=== PATIENT | female | born 1955 | race Caucasian/White ===

== ENCOUNTER 2021-01-17 16:50 | IRF | payer OTHER, SELFPAY ==
--- NOTE | 2021-01-17 17:06 | ADMGEN ---
This patient, Miriam Sandhu, was admitted to [facility] Room 225-01. Patient/family oriented to hospital policies and general routines including ID bracelet, bed and alarms, visiting hours, pain management, procedures, bathroom and other care routines, personal items, smoking policy, room service/diet, and visiting hours. Information on how to activate the Rapid Response Team has been discussed. Patient/Family are encouraged to report perceived risks to care and to ask questions if they do not understand what they are told or what they should do. arrived via ambulance,, no reported problems during transport
[2021-01-17 17:23] LABS: Glucose Point of Care 81 (65-105)
--- NOTE | 2021-01-17 17:37 | WPDREHABHP ---
H&P: HPI History of Present Illness Date/Time: 01/17/21 17:37 Chief Complaint: right below-knee amputation Narrative: HISTORY OF PRESENT ILLNESS: The patient's primary rehab impairment category is Amputation lower extremity The etiologic diagnosis is right foot osteomyelitis I saw this patient [id number] on 01/17/2021 The patient is a 65-year-old female past medical history of anemia history of pulmonary embolism, asthma, congestive heart failure, chronic kidney disease, diabetes mellitus, gastroparesis, GERD, hyperlipidemia, hypertension, peripheral neuropathy and osteomyelitis of the right foot who presented to [facility] in [facility] on 01/12/2021 for right below-knee amputation by Dr. Ramos. Postoperatively the patient experienced acute postop pain, acute blood loss anemia requiring 1 unit packed red blood cells, hypo glycemia, hypertension, acute kidney injury in the setting of chronic kidney disease. Her pain is controlled with oral analgesics. Acute kidney injury is resolving and creatinine is reaching her baseline. Patient's anemia is stable. Hyperglycemia was in the setting of insulin administration is being monitored and managed accordingly with 8 units of Lantus and sliding scale insulin. Hypertension is being treated with home metoprolol and amlodipine. Patient will be discharged to rehab on Coumadin for DVT prophylaxis. Patient has been on Coumadin and alternates between 1 and 2 mg at home. INR goal is 2-3. Therapy was initiated at the acute care facility and the patient transferred to us from [facility] on 01/17/2021 FALLS OR SURGERIES: The patient has had major surgeries in the 100 days prior to admission. right below the knee amputation 01/12/2021. The patient has not had falls in the past 6 months. The patient has not had falls with injury in the past 6 months PRIOR LEVEL OF FUNCTION: Eating was [INDEPENDENT] Oral Care was [INDEPENDENT] Toileting Hygiene was [INDEPENDENT] Shower/Bathing was [INDEPENDENT] Upper Body Dressing was [INDEPENDENT] Lower Body Dressing was [INDEPENDENT] Donning/[place] Footwear was [INDEPENDENT] Rolling Left and Right was [INDEPENDENT] Sit to Lying was [INDEPENDENT] Lying to Sitting was [INDEPENDENT] Sit to Stand was [INDEPENDENT] Bed to Chair Transfers was [INDEPENDENT] Toilet Transfers was [INDEPENDENT] Walking was [INDEPENDENT] [>500 feet] with roller walker Wheelchair Mobility was [ independent Stairs were [INDEPENDENT] CURRENT LEVEL OF FUNCTION: Eating was independent Oral Care was independent Toileting Hygiene was partial to mod Shower/Bathing was partial to moderate assist Upper Body Dressing was supervision are touching assistance Lower Body Dressing was partial to moderate assistance Donning/[place] Footwear was partial to moderate assistance Rolling Left and Right was supervision or touching assistance Sit to Lying was supervision or touching a Lying to Sitting was ssistance supervision or touching assistance Sit to Stand was partial to moderate assistance Bed to Chair Transfers were partial to moderate as Toilet Transfers were sistance partial to moderate assistance Walking was unable Wheelchair Mobility was not tested Stairs were not GOALS: Our therapists will evaluate the patient and establish the goals. However, upon pre-admission screening, the expected goals were to be [INDEPENDENT] with self-care, [INDEPENDENT] with transfers, and [INDEPENDENT] with functional mobility so that the patient can return home. ESTIMATED LENGTH OF STAY: 7-10 days POTENTIAL BARRIERS TO DISCHARGE: [Patient lives alone.] [Family needs training.] [Severity of condition.] ACTIVE CO-MORBIDITIES PRESENT ON ADMISSION: Active co-morbidities include hypertension, diabetes, peripheral neuropathy, heart failure with preserved ejection fraction, chronic kidney disease, hypoglycemia, allergic rhinitis, anemia
[2021-01-17 18:20] VITALS: BMI 26.1
[2021-01-17] MEDS: HYDROcodone/acetaminophen (*CRX) 5-325 MG TABLET 1 TAB PO (19:46)
[2021-01-17 20:21] VITALS: PULSE 86; RESP 18
[2021-01-17 20:33] LABS: Glucose Point of Care 113 (65-105)
[2021-01-17] MEDS: amLODIPine BESYLATE 5 MG TABLET PO (21:11)
[2021-01-17] MEDS: HEPARIN SODIUM 5,000 UNITS/ML VIAL 5000 UNITS SUB-Q (21:11)
[2021-01-17] MEDS: WARFARIN (*PBKC) 1 MG TABLET PO (21:13)
[2021-01-17 21:14] VITALS: PULSE 86
[2021-01-17] MEDS: LORATADINE 10 MG TABLET PO (21:14)
[2021-01-17] MEDS: ATORVASTATIN 10 MG TABLET PO (21:14)
[2021-01-17] MEDS: METOPROLOL TARTRATE 25 MG TABLET PO (21:14)
[2021-01-17 22:00] VITALS: BP 150/64; PULSE 86; RESP 16; TEMP 37.1; O2SAT 94
[2021-01-18 05:21] LABS: Basophils Percent Auto 0.3 % (0.2-1.2); Eosinophils Absolute Auto 0.9 K/mm3 (0-0.3); Hematocrit 25.1 % (37.0-47.0); Hemoglobin 7.7 g/dL (12.0-15.0); Immature Granulocyte Absolute 0.03 K/mm3 (0.00-0.031); Immature Granulocyte Percent A 0.4 % (0-0.5); Lymphocytes Percent Auto 20.6 % (18.3-44.2); Mean Corpuscular HGB Conc 30.7 g/dl (32-36); Mean Corpuscular Hemoglobin 25.9 pg (26-34); Mean Corpuscular Volume 84.5 fl (80-100); Monocytes Absolute Auto 0.4 K/mm3 (0.1-0.6); Monocytes Percent Auto 5.8 % (2.6-8.5); Neutrophils Absolute Auto 4.1 K/mm3 (1.3-6.7); Neutrophils Percent Auto 59.9 % (45.5-73.1); Platelet Count Result 308 k/mm3 (150-375); Red Blood Count 2.97 M/mm3 (4.2-5.4); Red Cell Distribution Width 15.8 % (11.5-14.5); White Blood Count 6.8 K/mm3 (4.5-10.0)
[2021-01-18 05:25] LABS: INR 1.4; Prothrombin Time 17.4 Seconds (11.1-14.7)
[2021-01-18 05:30] LABS: Alanine Aminotransferase 9 U/L (4-35); Albumin Level 3.3 g/dL (3.5-5.1); Alkaline Phosphatase 116 U/L (38-126); Anion Gap 5 mmol/L (8-16); Aspartate Amino Transferase 26 U/L (14-36); Bilirubin,Total < 0.1 mg/dL (0.2-1.3); Blood Urea Nitrogen 49 mg/dL (7-17); Calcium 8.6 mg/dL (8.4-10.2); Carbon Dioxide 26 mmol/L (22-30); Chloride 109 mmol/L (98-107); Estimated CRCL calculation 11 ml/min; Estimated Glomerular Filt Rate 13; Glucose 116 mg/dL (65-105); Potassium 4.9 mmol/L (3.4-5.0); Sodium 140 mmol/L (137-145)
[2021-01-18 05:39] VITALS: PULSE 76
[2021-01-18] MEDS: METOPROLOL TARTRATE 25 MG TABLET PO ×2 (05:39→17:40)
[2021-01-18 05:43] VITALS: BP 141/69; PULSE 76; RESP 16; TEMP 36.2; O2SAT 97
[2021-01-18 07:31] LABS: Glucose Point of Care 112 (65-105)
[2021-01-18] MEDS: FUROSEMIDE 40 MG TABLET PO (09:38)
[2021-01-18] MEDS: HEPARIN SODIUM 5,000 UNITS/ML VIAL 5000 UNITS SUB-Q ×2 (09:38→20:56)
[2021-01-18] MEDS: FLUTICASONE PROPIONATE 0.05% NA SPR 16 GM BTL (*BKC) 1 SPRAY NASAL (09:38)
[2021-01-18] MEDS: FERROUS SULFATE 324 MG TABLET PO (09:38)
[2021-01-18] MEDS: INSULIN GLARGINE (*BKC) 100 UNITS/ML 8 UNITS SUB-Q (09:42)
[2021-01-18 11:59] LABS: Glucose Point of Care 144 (65-105)
[2021-01-18 14:00] VITALS: BP 116/70; PULSE 82; RESP 16; TEMP 36.6; O2SAT 96
[2021-01-18 14:36] VITALS: BMI 26.1
--- NOTE | 2021-01-18 15:06 | PCNSR ---
On 01/18/21, the student,Shereen Don, provided care and completed [facility] documentation on this patient. I have reviewed the student's documentation and agree with the findings.
--- NOTE | 2021-01-18 15:13 | RPD ---
INDIVIDUALIZED PLAN OF CARE FOR Miriam Sandhu Brief Synthesis of Pre-Admission Screen, Post-Admission Evaluation and Therapy Evaluations: The patient presents to rehab with a right foot osteomyelitis s/p right BKA. Comorbidities include hypertension, diabetes mellitus, Charcot foot, heart failure with preserved ejection fraction, chronic kidney disease, hypoglycemia, allergic rhinitis, anemia, and asthma. The complexity of the patient's medical management, nursing, and therapy needs require an inpatient rehab hospital stay with a physician-led interdisciplinary team approach. The patient?s needs will be best met in an intensive program vs. at a lower level of care. The patient requires physician services for medical oversight, management of post-op complications in the setting of present comorbidities, management of diabetes mellitus, and pain management. Post-op complications have included acute postoperative pain, acute blood loss anemia, hypertension, acute kidney injury, and hypoglycemia. The patient requires nursing services for anticoagulation therapy, diabetes training, DVT prophylactics, infection protection, medication management and education, pressure relief, and wound care. The patient will be taught how to wrap the residual limb and how to monitor their skin for promotion of healing. Deficits include:ADLs, Balance, Endurance, Family Training/Education, Mobility, Pain Management, ROM, Safety, Strength, Transfers Remarketing Rep/Case Management for: Discharge Planning and Patient/Family Counseling Physical Therapy: 5 days per week for 90 minutes. Treatments may include: Therapeutic Exercise, Gait Training, Neuromuscular Re-education, Transfer Training, Community Reintegration, Bed Mobility, Patient/Family Education, Wheelchair Mobility Group Therapy/Concurrent Therapy Rationales: -Improve attention span during functional activities in a distracted environment. -Enhance problem solving and/or adequate judgment skills during functional activities in a distracted environment. -Promote increased safety awareness in a distracted environment to reduce fall risk with functional tasks, transfers, and ambulation to allow a more safe, self-sufficient return to the home environment. -Improve dynamic balance skills to promote safety and independence with functional activities in a distracted environment for maximum gain. Occupational Therapy: 5 days per week for 90 minutes. Treatments may include: Therapeutic Exercise, Therapeutic Activity, Cognitive Training, Self-Care Transfer Training, Community Reintegration, Home Management, Patient/Family Education, Wheelchair Mobility Training, Energy Conservation Training Group Therapy/Concurrent Therapy Rationales: -Allow therapist to observe and teach generalization and carry-over of skills learned in individual therapy. -Enhance problem solving and sequencing skills during therapeutic activities in a distracted environment. -Promote increased safety awareness in a realistic setting to reduce fall risk with functional tasks due to visual and verbal distractions. -Increase functional level with ADLs, ADL transfers and use of adaptive equipment through therapeutic activities with others while promoting safety to allow a more safe, self-sufficient return home. Medical Prognosis: Good Anticipated Length of Stay: 10 days Rehab Goals: Eating Goal: 06-Independent Oral Hygiene Goal: 06-Independent Toileting Hygiene Goal: 06-Independent Shower/Bathe Self Goal: 06-Independent Upper Body Dressing Goal: 06-Independent Lower Body Dressing Goal: 06-Independent Putting On/Taking Off Footwear Goal: 06-Independent Rolling Left and Right Goal: 06-Independent Sit to Lying Goal: 06-Independent Lying to Sitting on Side of Bed Goal: 06-Independent Sit to Stand Goal: 06-Independent Chair/[id number] Transfer Goal: 06-Independent Toilet Transfer Goal: 06-Independent Car Transfer Goal: 06-Independent Walk 10' Goal: 04-Supervision
[2021-01-18 15:15] LABS: Phosphorus 4.7 mg/dL (2.5-4.5)
[2021-01-18 17:05] LABS: Glucose Point of Care 141 (65-105)
[2021-01-18 17:40] VITALS: PULSE 82
[2021-01-18] MEDS: WARFARIN (*PBKC) 2 MG TABLET PO (17:40)
[2021-01-18] MEDS: LORATADINE 10 MG TABLET PO (20:56)
[2021-01-18] MEDS: ATORVASTATIN 10 MG TABLET PO (20:56)
[2021-01-18] MEDS: amLODIPine BESYLATE 5 MG TABLET PO (20:56)
[2021-01-18 22:00] VITALS: BP 136/58; PULSE 75; RESP 16; TEMP 36.9; O2SAT 96
[2021-01-19 05:09] LABS: INR 1.4; Prothrombin Time 17.9 Seconds (11.1-14.7)
[2021-01-19 05:44] VITALS: PULSE 78
[2021-01-19] MEDS: METOPROLOL TARTRATE 25 MG TABLET PO ×2 (05:44→18:23)
[2021-01-19 05:51] VITALS: BP 153/77; PULSE 84; RESP 16; TEMP 36.2; O2SAT 100
[2021-01-19 06:12] LABS: Glucose Point of Care 115 (65-105)
[2021-01-19 08:00] VITALS: PULSE 84; RESP 16; O2SAT 100
[2021-01-19] MEDS: FERROUS SULFATE 324 MG TABLET PO (08:20)
[2021-01-19] MEDS: FUROSEMIDE 40 MG TABLET PO (08:20)
[2021-01-19] MEDS: FLUTICASONE PROPIONATE 0.05% NA SPR 16 GM BTL (*BKC) 1 SPRAY NASAL (08:20)
[2021-01-19] MEDS: HEPARIN SODIUM 5,000 UNITS/ML VIAL 5000 UNITS SUB-Q ×2 (08:20→20:19)
[2021-01-19] MEDS: INSULIN GLARGINE (*BKC) 100 UNITS/ML 8 UNITS SUB-Q (08:21)
[2021-01-19 12:11] LABS: Glucose Point of Care 142 (65-105)
--- NOTE | 2021-01-19 13:45 | WPDNEURORHBP ---
Subjective Date/time seen: 01/19/21 13:45 65 years old lady admitted to the rehab floor with the diagnosis of status post right [id number] amputation in addition to the ongoing comorbid conditions of 1. Congestive heart failure 2. Chronic kidney disease 3. Chronic diabetes mellitus 4. Gastroparesis 5. GERD 6. Hyperlipidemia 7. Hypertension 8. Peripheral neuropathy 9. Anemia 10. History of pulmonary embolus at present afebrile respirations 16 pulse ox 100 on room air medications unchanged Review of Systems Review of Systems: All systems reviewed & are unremarkable except as noted in HPI and below Functional Status Ambulation Ability Ambulation Assistive Devices: Parallel Bars Transfers Ability Ability to Transfer In/Out of Chair: Minimum Assistance X 1 Exam Const: General: cooperative Nutritional Appearance: average body habitus Orientation/consciousness: oriented to person Neck: Neck: full ROM Resp: Effort & Inspection: normal respiratory effort Auscultation: clear to auscultation bilaterally Cardio: Rate: regular rate Neuro: General: oriented to person and oriented to place Cranial nerves: Yes CN's II-XII intact bilaterally Cognition (Neuro): normal cognition Speech: normal speech Motor exam (neuro): Pronator motor function not present, No tremor noted and Abnormal motor strength present Sensory Exam: Sensory deficit (Neuro) Deep tendon reflexes (DTR's): Right triceps reflex intensity grade: 1+, Left triceps reflex intensity grade: 1+, Rt Biceps (C5, C6): 1+, Left biceps reflex intensity grade: 1+, Right brachioradialis reflex intensity grade: 1+, Left brachioradialis reflex intensity grade: 1+, Right patellar reflex intensity grade: 1+ and Left ankle reflex intensity grade: 1+ Plantar Reflex Responses: downgoing: left Objective Data Vital Signs Vital Signs: Vital Signs - 24 hr 01/18/21 14:00 01/18/21 17:40 01/18/21 22:00 Temperature 36.6 C 36.9 C Pulse Rate 82 82 75 Respiratory Rate 16 16 Blood Pressure 116/70 136/58 L Pulse Oximetry 96 96 01/19/21 05:44 01/19/21 05:51 01/19/21 08:00 Temperature 36.2 C L Pulse Rate 78 84 84 Respiratory Rate 16 16 Blood Pressure 153/77 H Pulse Oximetry 100 100 Intake/Output Intake/Output: Intake & Output 05/02/0101/17/21 01/18/21 01/19/21 23:59 23:59 23:59 23:59 Intake Total 720 240 Balance 720 240 Meds/Results Medications: Active Medications Generic Name Dose Route Start Last Admin Trade Name Freq PRN Reason Stop Dose Admin Hydrocodone Bitart/Acetaminophen 1 tab 01/17/21 18:21 01/17/21 19:46 Hydrocodone/Acetaminophen (*Crx) 5-325 Mg Tablet PO 1 tab Q4H PRN Administration Pain Albuterol 2 puff 01/17/21 18:21 Albuterol Sulfate (*Sp) Aerosol 1 Puff INHALATION Q4H PRN Shortness Of Breath Or Wheezing Amlodipine Besylate 5 mg 01/17/21 21:00 01/18/21 20:56 Amlodipine Besylate 5 Mg Tablet PO 5 mg HS KERRY Administration Atorvastatin Calcium 10 mg 01/17/21 21:00 01/18/21 20:56 Atorvastatin 10 Mg Tablet PO 10 mg HS KERRY Administration Budesonide/Formoterol Fumarate 1 puff 01/17/21 20:00 01/19/21 08:21 Budesonide/Form 80-4.5 Mcg (*Sp) INHALATION 1 puff Q12HRT KERRY Administration Dextrose 12.5 gm 01/17/21 18:20 Dextrose 50% 25 Gm/50 Ml Syringe IV PUSH PRN PRN Hypoglycemia Protocol Ferrous Sulfate 324 mg 01/18/21 09:00 01/19/21 08:20 Ferrous Sulfate 324 Mg Tablet PO 324 mg DAILY KERRY Administration Fluticasone Propionate 1 spray 01/18/21 09:00 01/19/21 08:20 Fluticasone Propionate 0.05% Na Spr 16 Gm Btl (*Bkc) NASAL 1 spray DAILY KERRY Administration Furosemide 40 mg 01/18/21 09:00 01/19/21 08:20 Furosemide 40 Mg Tablet PO 40 mg DAILY KERRY Administration Glucagon 1 mg 01/17/21 18:20 Glucagon For Inj 1 Mg Vial IM PRN PRN Hypoglycemia Protocol Glucose 15 gm 01/17/21 18:20 Glucose Oral Gel 15 Gm Of Glucs
[2021-01-19 14:00] VITALS: BP 138/65; PULSE 77; RESP 20; TEMP 36.7; O2SAT 99
[2021-01-19 16:50] LABS: Glucose Point of Care 121 (65-105)
[2021-01-19 18:23] VITALS: PULSE 77
[2021-01-19] MEDS: WARFARIN (*PBKC) 1 MG TABLET PO (18:23)
[2021-01-19] MEDS: HYDROcodone/acetaminophen (*CRX) 5-325 MG TABLET 1 TAB PO (18:47)
[2021-01-19] MEDS: LORATADINE 10 MG TABLET PO (20:18)
[2021-01-19] MEDS: ATORVASTATIN 10 MG TABLET PO (20:19)
[2021-01-19] MEDS: amLODIPine BESYLATE 5 MG TABLET PO (20:19)
[2021-01-19 21:46] VITALS: BP 125/62; PULSE 69; RESP 16; TEMP 36.4; O2SAT 98
[2021-01-20] VITALS (7 sets, daily range): BP systolic 120–152; BP diastolic 67–73; PULSE 68–75; RESP 16–20; TEMP 36.3–36.8; O2SAT 99–100
[2021-01-20] MEDS: METOPROLOL TARTRATE 25 MG TABLET PO ×2 (05:26→17:51)
[2021-01-20 05:36] LABS: Glucose Point of Care 111 (65-105)
[2021-01-20 06:00] LABS: INR 1.6
[2021-01-20] MEDS: FUROSEMIDE 40 MG TABLET PO (08:19)
[2021-01-20] MEDS: FERROUS SULFATE 324 MG TABLET PO (08:19)
[2021-01-20] MEDS: HEPARIN SODIUM 5,000 UNITS/ML VIAL 5000 UNITS SUB-Q ×2 (08:20→19:59)
[2021-01-20] MEDS: INSULIN GLARGINE (*BKC) 100 UNITS/ML 8 UNITS SUB-Q (08:22)
[2021-01-20] MEDS: FLUTICASONE PROPIONATE 0.05% NA SPR 16 GM BTL (*BKC) 1 SPRAY NASAL (08:24)
[2021-01-20] MEDS: HYDROcodone/acetaminophen (*CRX) 5-325 MG TABLET 1 TAB PO (10:06)
[2021-01-20 12:07] LABS: Glucose Point of Care 107 (65-105)
[2021-01-20 17:16] LABS: Glucose Point of Care 161 (65-105)
[2021-01-20] MEDS: WARFARIN (*PBKC) 2 MG TABLET PO (17:52)
[2021-01-20] MEDS: ATORVASTATIN 10 MG TABLET PO (19:59)
[2021-01-20] MEDS: LORATADINE 10 MG TABLET PO (19:59)
[2021-01-20] MEDS: amLODIPine BESYLATE 5 MG TABLET PO (19:59)
[2021-01-20 21:16] LABS: Glucose Point of Care 122 (65-105)
[2021-01-21] MEDS: HYDROcodone/acetaminophen (*CRX) 5-325 MG TABLET 1 TAB PO ×2 (00:48→23:00)
[2021-01-21 05:24] LABS: Basophils Absolute Auto 0.1 K/mm3 (0.0-0.1); Basophils Percent Auto 0.8 % (0.2-1.2); Eosinophils Absolute Auto 1.3 K/mm3 (0-0.3); Eosinophils Percent Auto 14.7 % (0-4.4); Hematocrit 29.6 % (37.0-47.0); Hemoglobin 9.4 g/dL (12.0-15.0); Immature Granulocyte Absolute 0.02 K/mm3 (0.00-0.031); Immature Granulocyte Percent A 0.2 % (0-0.5); Lymphocytes Absolute Auto 2.39 K/mm3 (0.9-3.2); Lymphocytes Percent Auto 27.7 % (18.3-44.2); Mean Corpuscular HGB Conc 31.8 g/dl (32-36); Mean Corpuscular Hemoglobin 25.9 pg (26-34); Mean Corpuscular Volume 81.5 fl (80-100); Mean Platelet Volume 9.2 fl (7.4-10.4); Monocytes Absolute Auto 0.5 K/mm3 (0.1-0.6); Monocytes Percent Auto 5.6 % (2.6-8.5); Neutrophils Absolute Auto 4.4 K/mm3 (1.3-6.7); Platelet Count Result 375 k/mm3 (150-375); Red Blood Count 3.63 M/mm3 (4.2-5.4); Red Cell Distribution Width 15.9 % (11.5-14.5); White Blood Count 8.6 K/mm3 (4.5-10.0)
[2021-01-21 05:37] LABS: INR 1.7; Prothrombin Time 20.3 Seconds (11.1-14.7)
[2021-01-21] MEDS: METOPROLOL TARTRATE 25 MG TABLET PO ×2 (05:57→18:39)
[2021-01-21 06:00] VITALS: BP 139/74; PULSE 75; RESP 16; TEMP 35.9; O2SAT 100
[2021-01-21 06:26] LABS: Glucose Point of Care 101 (65-105)
[2021-01-21] MEDS: FERROUS SULFATE 324 MG TABLET PO (08:53)
[2021-01-21] MEDS: FUROSEMIDE 40 MG TABLET PO (08:54)
[2021-01-21] MEDS: FLUTICASONE PROPIONATE 0.05% NA SPR 16 GM BTL (*BKC) 1 SPRAY NASAL (08:54)
[2021-01-21] MEDS: INSULIN GLARGINE (*BKC) 100 UNITS/ML 8 UNITS SUB-Q (08:54)
[2021-01-21] MEDS: HEPARIN SODIUM 5,000 UNITS/ML VIAL 5000 UNITS SUB-Q ×2 (08:54→20:45)
[2021-01-21 12:38] LABS: Glucose Point of Care 110 (65-105)
--- NOTE | 2021-01-21 13:27 | PCOTNOTE ---
Documentation from 01/18/21 under Elizabeth BOOTH was documented accidentally under OT Acute Treatment . Documentation corrected and placed under OT TRC treatment for that date.
[2021-01-21 14:00] VITALS: BP 143/69; PULSE 79; RESP 18; TEMP 36.8; O2SAT 99
--- NOTE | 2021-01-21 15:45 | WPDNEURORHBP ---
Subjective Date/time seen: 01/21/21 15:45 patient admits to occasional pain to the stump at night. Encouraged patient to perform range of motion activities and gentle desensitization techniques. Review of Systems Review of Systems: All systems reviewed & are unremarkable except as noted in HPI and below Neurologic: Reports Sensory deficit (Neuro) Functional Status Ambulation Ability Ambulation Assistive Devices: Walker, Wheeled Transfers Ability Ability to Transfer In/Out of Chair: Minimum Assistance X 1 Exam Narrative: Exam Narrative: patient is alert and oriented x3 patient is wearing glasses. Patient is well kept. Voice is clear. Heart rate and rhythm is regular. Lungs are clear to auscultation. Abdomen is soft nontender. Bilateral upper extremity strength are 4-5. Sensation in a stocking-glove distribution is noted that the sensory loss. Left lower extremity is missing toes. Left lower extremity strength is 4/5. Objective Data Vital Signs Vital Signs: Vital Signs - 24 hr 01/20/21 17:51 01/20/21 20:00 01/20/21 21:39 Temperature 36.6 C Pulse Rate 72 68 68 Respiratory Rate 16 16 Blood Pressure 152/67 H Pulse Oximetry 100 100 01/21/21 06:00 01/21/21 14:00 Temperature 35.9 C L 36.8 C Pulse Rate 75 79 Respiratory Rate 16 18 Blood Pressure 139/74 143/69 H Pulse Oximetry 100 99 Intake/Output Intake/Output: Intake & Output 01/18/21 01/19/21 01/20/21 01/21/21 23:59 23:59 23:59 23:59 Intake Total 720 720 720 480 Balance 720 720 720 480 Meds/Results Medications: Active Medications Generic Name Dose Route Start Last Admin Trade Name Freq PRN Reason Stop Dose Admin Hydrocodone Bitart/Acetaminophen 1 tab 01/17/21 18:21 01/21/21 00:48 Hydrocodone/Acetaminophen (*Crx) 5-325 Mg Tablet PO 1 tab Q4H PRN Administration Pain Albuterol 2 puff 01/17/21 18:21 Albuterol Sulfate (*Sp) Aerosol 1 Puff INHALATION Q4H PRN Shortness Of Breath Or Wheezing Amlodipine Besylate 5 mg 01/17/21 21:00 01/20/21 19:59 Amlodipine Besylate 5 Mg Tablet PO 5 mg HS KERRY Administration Atorvastatin Calcium 10 mg 01/17/21 21:00 01/20/21 19:59 Atorvastatin 10 Mg Tablet PO 10 mg HS KERRY Administration Budesonide/Formoterol Fumarate 1 puff 01/17/21 20:00 01/21/21 08:53 Budesonide/Form 80-4.5 Mcg (*Sp) INHALATION 1 puff Q12HRT KERRY Administration Dextrose 12.5 gm 01/17/21 18:20 Dextrose 50% 25 Gm/50 Ml Syringe IV PUSH PRN PRN Hypoglycemia Protocol Ferrous Sulfate 324 mg 01/18/21 09:00 01/21/21 08:53 Ferrous Sulfate 324 Mg Tablet PO 324 mg DAILY KERRY Administration Fluticasone Propionate 1 spray 01/18/21 09:00 01/21/21 08:54 Fluticasone Propionate 0.05% Na Spr 16 Gm Btl (*Bkc) NASAL 1 spray DAILY KERRY Administration Furosemide 40 mg 01/18/21 09:00 01/21/21 08:54 Furosemide 40 Mg Tablet PO 40 mg DAILY KERRY Administration Glucagon 1 mg 01/17/21 18:20 Glucagon For Inj 1 Mg Vial IM PRN PRN Hypoglycemia Protocol Glucose 15 gm 01/17/21 18:20 Glucose Oral Gel 15 Gm Of Glucse In 37.5 Gm Tube PO PRN PRN Hypoglycemia Protocol Heparin Sodium (Porcine) 5,000 units 01/17/21 21:00 01/21/21 08:54 Heparin Sodium 5,000 Units/Ml Vial SUB-Q 5,000 units Q12HR KERRY Administration Dextrose 1,000 mls @ 100 mls/hr 01/17/21 18:20 Dextrose 5% 1,000 Ml IVPB PRN PRN Hypoglycemia Protocol Insulin Aspart 3 - 6 units 01/18/21 08:00 01/21/21 12:54 Insulin Aspart (*Bkc) 100 Units/Ml SUB-Q Not Given TIDWM KERRY Protocol Insulin Glargine 8 units 01/18/21 09:00 01/21/21 08:54 Insulin Glargine (*Bkc) 100 Units/Ml SUB-Q 8 units QAM KERRY Administration Loratadine 10 mg 01/17/21 21:00 01/20/21 19:59 Loratadine 10 Mg Tablet PO 02/16/21 21:01 10 mg HS KERRY Administration Metoprolol Tartrate 25 mg 01/17/21 18:25 01/21/21 05:57 M
[2021-01-21 17:17] LABS: Glucose Point of Care 145 (65-105)
[2021-01-21] MEDS: WARFARIN (*PBKC) 2 MG TABLET PO (17:56)
[2021-01-21 20:36] LABS: Glucose Point of Care 166 (65-105)
[2021-01-21] MEDS: LORATADINE 10 MG TABLET PO (20:44)
[2021-01-21] MEDS: amLODIPine BESYLATE 5 MG TABLET PO (20:44)
[2021-01-21] MEDS: ATORVASTATIN 10 MG TABLET PO (20:44)
[2021-01-21] MEDS: DOCUSATE SODIUM LIQ 100 MG/10 ML UDC PO (20:45)
[2021-01-21 21:32] VITALS: BP 167/63; PULSE 83; RESP 16; TEMP 36.8; O2SAT 97
[2021-01-22 05:19] LABS: Prothrombin Time 22.9 Seconds (11.1-14.7)
[2021-01-22 06:00] VITALS: BP 139/56; PULSE 75; RESP 16; TEMP 36.6; O2SAT 96
[2021-01-22 06:14] VITALS: PULSE 96
[2021-01-22] MEDS: METOPROLOL TARTRATE 25 MG TABLET PO ×2 (06:14→18:26)
[2021-01-22] MEDS: HYDROcodone/acetaminophen (*CRX) 5-325 MG TABLET 1 TAB PO (06:55)
[2021-01-22 07:14] LABS: Glucose Point of Care 108 (65-105)
[2021-01-22] MEDS: polyethylene glycoL 3350 17 GM POWD.PACK PO ×2 (07:41→18:25)
[2021-01-22] MEDS: INSULIN GLARGINE (*BKC) 100 UNITS/ML 8 UNITS SUB-Q (07:41)
[2021-01-22] MEDS: HEPARIN SODIUM 5,000 UNITS/ML VIAL 5000 UNITS SUB-Q (07:42)
[2021-01-22] MEDS: FUROSEMIDE 40 MG TABLET PO (07:43)
[2021-01-22] MEDS: FERROUS SULFATE 324 MG TABLET PO (07:43)
[2021-01-22] MEDS: DOCUSATE SODIUM LIQ 100 MG/10 ML UDC PO ×2 (07:43→20:03)
[2021-01-22] MEDS: FLUTICASONE PROPIONATE 0.05% NA SPR 16 GM BTL (*BKC) 1 SPRAY NASAL (07:43)
[2021-01-22 12:10] LABS: Glucose Point of Care 119 (65-105)
[2021-01-22 14:00] VITALS: BP 144/80; PULSE 76; RESP 16; TEMP 36.4; O2SAT 99
--- NOTE | 2021-01-22 16:03 | WPDNEURORHBP ---
Subjective Date/time seen: 01/22/21 16:03 Patient was seen early in the morning and complained of inability to sleep. When I arrived in the afternoon to evaluate her patient was sound asleep. Examiner did not wake her. Review of Systems Review of Systems: All systems reviewed & are unremarkable except as noted in HPI and below Neurologic: Reports Sensory deficit (Neuro) Functional Status Ambulation Ability Ambulation Assistive Devices: Walker, Wheeled Transfers Ability Ability to Transfer In/Out of Chair: Minimum Assistance X 1 Exam Narrative: Exam Narrative: patient is alert and oriented x3 patient is wearing glasses. Patient is well kept. Voice is clear. Heart rate and rhythm is regular. Lungs are clear to auscultation. Abdomen is soft nontender. Bilateral upper extremity strength are 4-5. Sensation in a stocking-glove distribution is noted that the sensory loss. Left lower extremity is missing toes. Left lower extremity strength is 4/5. Objective Data Vital Signs Vital Signs: Vital Signs - 24 hr 01/21/21 21:32 01/22/21 06:00 01/22/21 06:14 Temperature 36.8 C 36.6 C Pulse Rate 83 75 96 Respiratory Rate 16 16 Blood Pressure 167/63 H 139/56 L Pulse Oximetry 97 96 01/22/21 14:00 Temperature 36.4 C L Pulse Rate 76 Respiratory Rate 16 Blood Pressure 144/80 H Pulse Oximetry 99 Intake/Output Intake/Output: Intake & Output 01/19/21 01/20/21 01/21/21 01/22/21 23:59 23:59 23:59 23:59 Intake Total 720 720 720 600 Balance 720 720 720 600 Meds/Results Medications: Active Medications Generic Name Dose Route Start Last Admin Trade Name Freq PRN Reason Stop Dose Admin Hydrocodone Bitart/Acetaminophen 1 tab 01/17/21 18:21 01/22/21 06:55 Hydrocodone/Acetaminophen (*Crx) 5-325 Mg Tablet PO 1 tab Q4H PRN Administration Pain Albuterol 2 puff 01/17/21 18:21 Albuterol Sulfate (*Sp) Aerosol 1 Puff INHALATION Q4H PRN Shortness Of Breath Or Wheezing Amlodipine Besylate 5 mg 01/17/21 21:00 01/21/21 20:44 Amlodipine Besylate 5 Mg Tablet PO 5 mg HS KERRY Administration Atorvastatin Calcium 10 mg 01/17/21 21:00 01/21/21 20:44 Atorvastatin 10 Mg Tablet PO 10 mg HS KERRY Administration Budesonide/Formoterol Fumarate 1 puff 01/17/21 20:00 01/22/21 07:41 Budesonide/Form 80-4.5 Mcg (*Sp) INHALATION 1 puff Q12HRT KERRY Administration Dextrose 12.5 gm 01/17/21 18:20 Dextrose 50% 25 Gm/50 Ml Syringe IV PUSH PRN PRN Hypoglycemia Protocol Docusate Sodium 100 mg 01/21/21 21:00 01/22/21 07:43 Docusate Sodium Liq 100 Mg/10 Ml Udc PO 100 mg Q12HR KERRY Administration Ferrous Sulfate 324 mg 01/18/21 09:00 01/22/21 07:43 Ferrous Sulfate 324 Mg Tablet PO 324 mg DAILY KERRY Administration Fluticasone Propionate 1 spray 01/18/21 09:00 01/22/21 07:43 Fluticasone Propionate 0.05% Na Spr 16 Gm Btl (*Bkc) NASAL 1 spray DAILY KERRY Administration Furosemide 40 mg 01/18/21 09:00 01/22/21 07:43 Furosemide 40 Mg Tablet PO 40 mg DAILY KERRY Administration Glucagon 1 mg 01/17/21 18:20 Glucagon For Inj 1 Mg Vial IM PRN PRN Hypoglycemia Protocol Glucose 15 gm 01/17/21 18:20 Glucose Oral Gel 15 Gm Of Glucse In 37.5 Gm Tube PO PRN PRN Hypoglycemia Protocol Dextrose 1,000 mls @ 100 mls/hr 01/17/21 18:20 Dextrose 5% 1,000 Ml IVPB PRN PRN Hypoglycemia Protocol Insulin Aspart 3 - 6 units 01/18/21 08:00 01/22/21 13:12 Insulin Aspart (*Bkc) 100 Units/Ml SUB-Q Not Given TIDWM KERRY Protocol Insulin Glargine 8 units 01/18/21 09:00 01/22/21 07:41 Insulin Glargine (*Bkc) 100 Units/Ml SUB-Q 8 units QAM KERRY Administration Loratadine 10 mg 01/17/21 21:00 01/21/21 20:44 Loratadine 10 Mg Tablet PO 02/16/21 21:01 10 mg HS KERRY Administration Melatonin 3 mg 01/22/21 21:00 Melatonin 3 Mg Tablet PO HS KERRY Metoprolo
[2021-01-22 16:53] LABS: Glucose Point of Care 132 (65-105)
[2021-01-22] MEDS: ACETAMINOPHEN 500 MG TABLET 1000 MG PO (18:24)
[2021-01-22 18:26] VITALS: PULSE 76
[2021-01-22] MEDS: WARFARIN (*PBKC) 1 MG TABLET PO (18:26)
[2021-01-22] MEDS: amLODIPine BESYLATE 5 MG TABLET PO (20:03)
[2021-01-22] MEDS: MELATONIN 3 MG TABLET PO (20:03)
[2021-01-22] MEDS: LORATADINE 10 MG TABLET PO (20:03)
[2021-01-22] MEDS: ATORVASTATIN 10 MG TABLET PO (20:04)
[2021-01-22 21:11] LABS: Glucose Point of Care 197 (65-105)
[2021-01-22 22:00] VITALS: BP 142/71; PULSE 67; RESP 18; TEMP 36.9; O2SAT 97
[2021-01-23] MEDS: HYDROcodone/acetaminophen (*CRX) 5-325 MG TABLET 1 TAB PO ×2 (00:08→23:27)
[2021-01-23 05:40] LABS: INR 2.3; Prothrombin Time 25.6 Seconds (11.1-14.7)
[2021-01-23 06:00] VITALS: BP 137/71; PULSE 70; RESP 16; TEMP 36.3; O2SAT 98
[2021-01-23 06:19] VITALS: PULSE 70
[2021-01-23] MEDS: METOPROLOL TARTRATE 25 MG TABLET PO ×2 (06:19→18:21)
[2021-01-23 07:31] LABS: Glucose Point of Care 101 (65-105)
[2021-01-23] MEDS: INSULIN GLARGINE (*BKC) 100 UNITS/ML 8 UNITS SUB-Q (08:27)
[2021-01-23] MEDS: FUROSEMIDE 40 MG TABLET PO (08:29)
[2021-01-23] MEDS: FLUTICASONE PROPIONATE 0.05% NA SPR 16 GM BTL (*BKC) 1 SPRAY NASAL (08:29)
[2021-01-23] MEDS: FERROUS SULFATE 324 MG TABLET PO (08:29)
[2021-01-23] MEDS: DOCUSATE SODIUM LIQ 100 MG/10 ML UDC PO ×2 (08:29→20:51)
[2021-01-23] MEDS: polyethylene glycoL 3350 17 GM POWD.PACK PO ×2 (08:30→17:12)
[2021-01-23] MEDS: ACETAMINOPHEN 500 MG TABLET 1000 MG PO ×2 (08:30→17:12)
[2021-01-23 10:13] LABS: Glucose Point of Care 112 (65-105)
[2021-01-23 11:49] LABS: Glucose Point of Care 120 (65-105)
--- NOTE | 2021-01-23 12:14 | PCNFU ---
Nutrition Follow-Up Complete: Nutrition Diagnosis: Increased nutrient needs related to BKA as evidence by promoting proper wound healing. Nutrition Goal: Meet estimated nutritional needs. Goal met, patient reports good appetite and has consumed 75-100% of most meals. Continues on diabetic, gluten free, and low phosphorus diet. Denies nutrition concerns. Last recorded weight is 64.8 kg. Recommend obtain new weight. Bowel Motility: Last documented on 01/22. Labs Reviewed: Hgb (9.4), Hct (29.6) Meds Noted: [place], Norvasc, Lipitor, Symbicort, Colace, Lasix, Ferrous Sulfate, Novolog, Lantus, Lopressor, Miralax, Coumadin Additional Notes: Dressing to amputation site, no pressure ulcers, will continue to monitor with the same goal. Follow up in 7 days.
--- NOTE | 2021-01-23 12:22 | PCNSR ---
On 01/23/21, the student, Kelly Mercedes, provided care and completed [facility] documentation on this patient. I have reviewed the student's documentation and agree with the findings.
[2021-01-23 14:00] VITALS: BP 127/61; PULSE 76; RESP 18; TEMP 36.3; O2SAT 99
[2021-01-23 16:52] LABS: Glucose Point of Care 149 (65-105)
--- NOTE | 2021-01-23 17:01 | WPDNEURORHBP ---
Subjective Date/time seen: 01/23/21 17:01 Patient complains of inability to sleep. Patient complains of burning sensation and phantom pain. Review of Systems Review of Systems: All systems reviewed & are unremarkable except as noted in HPI and below Functional Status Ambulation Ability Ability to Ambulate 10 Feet: Contact Guard Ambulation Assistive Devices: Walker, Wheeled Transfers Ability Ability to Transfer In/Out of Chair: Minimum Assistance X 1 Exam Narrative: Exam Narrative: patient is alert and oriented x3 patient is wearing glasses. Patient is well kept. Voice is clear. Heart rate and rhythm is regular. Lungs are clear to auscultation. Abdomen is soft nontender. Bilateral upper extremity strength are 4-5. Sensation in a stocking-glove distribution is noted that the sensory loss. Left lower extremity is missing toes. Left lower extremity strength is 4/5. Patient is seated at edge of bed. Overall balance is good. Patient is independent with dressing Objective Data Vital Signs Vital Signs: Vital Signs - 24 hr 01/22/21 18:26 01/22/21 22:00 01/23/21 06:00 Temperature 36.9 C 36.3 C L Pulse Rate 76 67 70 Respiratory Rate 18 16 Blood Pressure 142/71 H 137/71 Pulse Oximetry 97 98 01/23/21 06:19 01/23/21 14:00 Temperature 36.3 C L Pulse Rate 70 76 Respiratory Rate 18 Blood Pressure 127/61 Pulse Oximetry 99 Intake/Output Intake/Output: Intake & Output 01/20/21 01/21/21 01/22/21 01/23/21 23:59 23:59 23:59 23:59 Intake Total 720 720 840 480 Balance 720 720 840 480 Meds/Results Medications: Active Medications Generic Name Dose Route Start Last Admin Trade Name Freq PRN Reason Stop Dose Admin Acetaminophen 1,000 mg 01/22/21 17:00 01/23/21 08:30 Acetaminophen 500 Mg Tablet PO 1,000 mg BID KERRY Administration Hydrocodone Bitart/Acetaminophen 1 tab 01/17/21 18:21 01/23/21 00:08 Hydrocodone/Acetaminophen (*Crx) 5-325 Mg Tablet PO 1 tab Q4H PRN Administration Pain Albuterol 2 puff 01/17/21 18:21 Albuterol Sulfate (*Sp) Aerosol 1 Puff INHALATION Q4H PRN Shortness Of Breath Or Wheezing Amlodipine Besylate 5 mg 01/17/21 21:00 01/22/21 20:03 Amlodipine Besylate 5 Mg Tablet PO 5 mg HS KERRY Administration Atorvastatin Calcium 10 mg 01/17/21 21:00 01/22/21 20:04 Atorvastatin 10 Mg Tablet PO 10 mg HS KERRY Administration Budesonide/Formoterol Fumarate 1 puff 01/17/21 20:00 01/23/21 08:29 Budesonide/Form 80-4.5 Mcg (*Sp) INHALATION 1 puff Q12HRT KERRY Administration Dextrose 12.5 gm 01/17/21 18:20 Dextrose 50% 25 Gm/50 Ml Syringe IV PUSH PRN PRN Hypoglycemia Protocol Docusate Sodium 100 mg 01/21/21 21:00 01/23/21 08:29 Docusate Sodium Liq 100 Mg/10 Ml Udc PO 100 mg Q12HR KERRY Administration Ferrous Sulfate 324 mg 01/18/21 09:00 01/23/21 08:29 Ferrous Sulfate 324 Mg Tablet PO 324 mg DAILY KERRY Administration Fluticasone Propionate 1 spray 01/18/21 09:00 01/23/21 08:29 Fluticasone Propionate 0.05% Na Spr 16 Gm Btl (*Bkc) NASAL 1 spray DAILY KERRY Administration Furosemide 40 mg 01/18/21 09:00 01/23/21 08:29 Furosemide 40 Mg Tablet PO 40 mg DAILY KERRY Administration Glucagon 1 mg 01/17/21 18:20 Glucagon For Inj 1 Mg Vial IM PRN PRN Hypoglycemia Protocol Glucose 15 gm 01/17/21 18:20 Glucose Oral Gel 15 Gm Of Glucse In 37.5 Gm Tube PO PRN PRN Hypoglycemia Protocol Dextrose 1,000 mls @ 100 mls/hr 01/17/21 18:20 Dextrose 5% 1,000 Ml IVPB PRN PRN Hypoglycemia Protocol Insulin Aspart 3 - 6 units 01/18/21 08:00 01/23/21 11:55 Insulin Aspart (*Bkc) 100 Units/Ml SUB-Q Not Given TIDWM KERRY Protocol Insulin Glargine 8 units 01/18/21 09:00 01/23/21 08:27 Insulin Glargine (*Bkc) 100 Units/Ml SUB-Q 8 units QAM KERRY Administration Loratadine 10 mg 01/17/21 21:00 01/22/21 20
[2021-01-23] MEDS: WARFARIN (*PBKC) 2 MG TABLET PO (17:13)
[2021-01-23 18:21] VITALS: PULSE 72
[2021-01-23] MEDS: LORATADINE 10 MG TABLET PO (20:51)
[2021-01-23] MEDS: ATORVASTATIN 10 MG TABLET PO (20:51)
[2021-01-23] MEDS: GABAPENTIN 100 MG CAPSULE PO (20:51)
[2021-01-23] MEDS: amLODIPine BESYLATE 5 MG TABLET PO (20:51)
[2021-01-23 21:13] LABS: Glucose Point of Care 135 (65-105)
[2021-01-23 21:36] VITALS: BP 139/65; PULSE 70; RESP 16; TEMP 36.4; O2SAT 100
[2021-01-24 05:25] LABS: INR 2.6; Prothrombin Time 28.1 Seconds (11.1-14.7)
[2021-01-24 05:55] VITALS: PULSE 72
[2021-01-24] MEDS: METOPROLOL TARTRATE 25 MG TABLET PO ×2 (05:55→17:55)
[2021-01-24 06:00] VITALS: BP 143/72; PULSE 72; RESP 16; TEMP 36.2; O2SAT 100
[2021-01-24 06:32] LABS: Glucose Point of Care 100 (65-105)
[2021-01-24] MEDS: INSULIN GLARGINE (*BKC) 100 UNITS/ML 8 UNITS SUB-Q (07:49)
[2021-01-24] MEDS: ACETAMINOPHEN 500 MG TABLET 1000 MG PO ×2 (07:51→17:54)
[2021-01-24] MEDS: FERROUS SULFATE 324 MG TABLET PO (07:51)
[2021-01-24] MEDS: FLUTICASONE PROPIONATE 0.05% NA SPR 16 GM BTL (*BKC) 1 SPRAY NASAL (07:51)
[2021-01-24] MEDS: DOCUSATE SODIUM LIQ 100 MG/10 ML UDC PO ×2 (07:51→20:34)
[2021-01-24] MEDS: FUROSEMIDE 40 MG TABLET PO (07:51)
[2021-01-24] MEDS: polyethylene glycoL 3350 17 GM POWD.PACK PO (07:51)
[2021-01-24 11:43] LABS: Glucose Point of Care 126 (65-105)
--- NOTE | 2021-01-24 12:09 | WPDNEURORHBP ---
Subjective Date/time seen: The etiologic diagnosis is right foot osteomyelitis with new BKA The patient is a 65-year-old female past medical history of anemia history of pulmonary embolism, asthma, congestive heart failure, chronic kidney disease, diabetes mellitus, gastroparesis, GERD, hyperlipidemia, hypertension, peripheral neuropathy and osteomyelitis of the right foot who presented to [facility] on 01/12/2021 for right below-knee amputation by Dr. Hopson. Postoperatively the patient experienced acute postop pain, acute blood loss anemia requiring 1 unit packed red blood cells, hypo glycemia, hypertension, acute kidney injury in the setting of chronic kidney disease. Her pain is controlled with oral analgesics. Acute kidney injury is resolving and creatinine is reaching her baseline. Patient's anemia is stable. Hyperglycemia was in the setting of insulin administration is being monitored and managed accordingly with 8 units of Lantus and sliding scale insulin. Hypertension is being treated with home metoprolol and amlodipine. Patient will be discharged to rehab on Coumadin for DVT prophylaxis. Patient has been on Coumadin and alternates between 1 and 2 mg at home. INR goal is 2-3. Review of Systems Review of Systems: All systems reviewed & are unremarkable except as noted in HPI and below Neurologic: Reports Sensory deficit (Neuro) Functional Status Ambulation Ability Ability to Ambulate 10 Feet: Contact Guard Ambulation Assistive Devices: Walker, Wheeled Transfers Ability Ability to Transfer In/Out of Chair: Minimum Assistance X 1 Exam Narrative: Exam Narrative: patient is alert and oriented x3 patient is wearing glasses. Patient is well kept. Voice is clear. Heart rate and rhythm is regular. Lungs are clear to auscultation. Abdomen is soft nontender. Bilateral upper extremity strength are 4-5. Sensation in a stocking-glove distribution is noted that the sensory loss. Left lower extremity is missing toes. Left lower extremity strength is 4/5. Overall balance is good. Patient is independent with dressing Objective Data Vital Signs Vital Signs: Vital Signs - 24 hr 01/23/21 14:00 01/23/21 18:21 01/23/21 21:36 Temperature 36.3 C L 36.4 C L Pulse Rate 76 72 70 Respiratory Rate 18 16 Blood Pressure 127/61 139/65 Pulse Oximetry 99 100 01/24/21 05:55 01/24/21 06:00 Temperature 36.2 C L Pulse Rate 72 72 Respiratory Rate 16 Blood Pressure 143/72 H Pulse Oximetry 100 Intake/Output Intake/Output: Intake & Output 01/21/21 01/22/21 01/23/21 01/24/21 23:59 23:59 23:59 23:59 Intake Total 720 840 720 240 Balance 720 840 720 240 Meds/Results Medications: Active Medications Generic Name Dose Route Start Last Admin Trade Name Freq PRN Reason Stop Dose Admin Acetaminophen 1,000 mg 01/22/21 17:00 01/24/21 07:51 Acetaminophen 500 Mg Tablet PO 1,000 mg BID KERRY Administration Hydrocodone Bitart/Acetaminophen 1 tab 01/17/21 18:21 01/23/21 23:27 Hydrocodone/Acetaminophen (*Crx) 5-325 Mg Tablet PO 1 tab Q4H PRN Administration Pain Albuterol 2 puff 01/17/21 18:21 Albuterol Sulfate (*Sp) Aerosol 1 Puff INHALATION Q4H PRN Shortness Of Breath Or Wheezing Amlodipine Besylate 5 mg 01/17/21 21:00 01/23/21 20:51 Amlodipine Besylate 5 Mg Tablet PO 5 mg HS KERRY Administration Atorvastatin Calcium 10 mg 01/17/21 21:00 01/23/21 20:51 Atorvastatin 10 Mg Tablet PO 10 mg HS KERRY Administration Budesonide/Formoterol Fumarate 1 puff 01/17/21 20:00 01/24/21 07:50 Budesonide/Form 80-4.5 Mcg (*Sp) INHALATION 1 puff Q12HRT KERRY Administration Dextrose 12.5 gm 01/17/21 18:20 Dextrose 50% 25 Gm/50 Ml Syringe IV PUSH PRN PRN Hypoglycemia Protocol Docusate Sodium 100 mg 01/21/21 21:00 01/24/21 07:51 Docusate Sodium Liq 100 Mg/10 Ml Udc PO 100 mg Q12HR KERRY Administration Ferrous Sulfate 324 mg
[2021-01-24 14:00] VITALS: BP 145/72; PULSE 79; RESP 20; TEMP 36.1; O2SAT 97
[2021-01-24 16:52] LABS: Glucose Point of Care 131 (65-105)
[2021-01-24 17:55] VITALS: PULSE 79
[2021-01-24] MEDS: WARFARIN (*PBKC) 1 MG TABLET PO (17:55)
[2021-01-24] MEDS: amLODIPine BESYLATE 5 MG TABLET PO (20:33)
[2021-01-24] MEDS: GABAPENTIN 100 MG CAPSULE 200 MG PO (20:33)
[2021-01-24] MEDS: LORATADINE 10 MG TABLET PO (20:34)
[2021-01-24] MEDS: ATORVASTATIN 10 MG TABLET PO (20:34)
[2021-01-24 21:52] VITALS: BP 149/68; PULSE 66; RESP 14; TEMP 36.5; O2SAT 100
[2021-01-25] MEDS: HYDROcodone/acetaminophen (*CRX) 5-325 MG TABLET 1 TAB PO
[2021-01-25 05:16] LABS: Basophils Absolute Auto 0.1 K/mm3 (0.0-0.1); Basophils Percent Auto 1.5 % (0.2-1.2); Eosinophils Absolute Auto 1.4 K/mm3 (0-0.3); Eosinophils Percent Auto 17.9 % (0-4.4); Hematocrit 32.8 % (37.0-47.0); Immature Granulocyte Absolute 0.02 K/mm3 (0.00-0.031); Immature Granulocyte Percent A 0.3 % (0-0.5); Lymphocytes Absolute Auto 2.52 K/mm3 (0.9-3.2); Lymphocytes Percent Auto 32.5 % (18.3-44.2); Mean Corpuscular HGB Conc 30.5 g/dl (32-36); Mean Corpuscular Volume 85.2 fl (80-100); Mean Platelet Volume 8.6 fl (7.4-10.4); Monocytes Absolute Auto 0.5 K/mm3 (0.1-0.6); Monocytes Percent Auto 6.8 % (2.6-8.5); Neutrophils Absolute Auto 3.2 K/mm3 (1.3-6.7); Platelet Count Result 359 k/mm3 (150-375); Red Blood Count 3.85 M/mm3 (4.2-5.4); Red Cell Distribution Width 16.3 % (11.5-14.5); White Blood Count 7.8 K/mm3 (4.5-10.0)
[2021-01-25 05:27] VITALS: PULSE 68
[2021-01-25] MEDS: METOPROLOL TARTRATE 25 MG TABLET PO ×2 (05:27→17:33)
[2021-01-25 05:28] LABS: INR 2.8; Prothrombin Time 30.2 Seconds (11.1-14.7)
[2021-01-25 05:44] LABS: Glucose Point of Care 95 (65-105)
[2021-01-25 05:51] LABS: Alanine Aminotransferase 15 U/L (4-35); Albumin Level 3.8 g/dL (3.5-5.1); Alkaline Phosphatase 139 U/L (38-126); Anion Gap 10 mmol/L (8-16); Aspartate Amino Transferase 28 U/L (14-36); Bilirubin,Total < 0.1 mg/dL (0.2-1.3); Blood Urea Nitrogen 64 mg/dL (7-17); Calcium 8.8 mg/dL (8.4-10.2); Carbon Dioxide 24 mmol/L (22-30); Chloride 106 mmol/L (98-107); Estimated CRCL calculation 12 ml/min; Estimated Glomerular Filt Rate 14; Glucose 103 mg/dL (65-105); Potassium 4.9 mmol/L (3.4-5.0); Sodium 140 mmol/L (137-145)
[2021-01-25 05:56] VITALS: BP 146/64; PULSE 65; RESP 20; TEMP 35.9; O2SAT 100
[2021-01-25] MEDS: INSULIN GLARGINE (*BKC) 100 UNITS/ML 8 UNITS SUB-Q (07:27)
--- NOTE | 2021-01-25 08:36 | PCPTNOTE ---
Radha A. DELGADO Thomsaon completed an inpatient rehab wheelchair evaluation on Miriam Sandhu on 01/25/2021. The patient is unable to safely and independently ambulate household distances due to their current impairments. Their diagnosis is R BKA and their impairments include decreased strength, decreased endurance, decreased range of motion, decreased balance, lower extremity weakness, and ataxia. Miriam's weight bearing status is weight-bearing as tolerated on the left leg and non weight bearing to right leg. The patient demonstrates significant functional mobility limitations that impair their ability to participate in mobility-related activities of daily living (MRADLs), including toileting, feeding, dressing, grooming, and bathing in the customary locations in the home. These limitations cannot be sufficiently resolved by the use of an appropriately fitted cane or walker. It is recommended that the patient utilize a wheelchair for functional mobility within the home in order to facilitate optimal safety, independence and participation in all MRADL's and adequately access their home environment on a regular basis. The patient's home provides adequate access between rooms, maneuvering space, and surfaces to accommodate the recommended wheelchair. The use of a wheelchair for functional mobility is strongly recommended and the patient is receptive to using the wheelchair. The use of this wheelchair will significantly improve the patient's ability to participate in MRADLS and the patient will use it on a regular basis in the home. This will facilitate optimal safety, independence, and participation. The patient has demonstrated sufficient physical and mental capabilities needed to safely propel a manual wheelchair that is provided in the home during a typical day. Recommended Wheelchair Frame: Standard Recommended Wheelchair Size: 18x18 Recommended Wheelchair Cushion:standard Wheelchair Leg Recommendations: Right residual limb leg rest and left swing away leg rest -Anti-tippers are recommended due to patient demonstrating increased risk for falls. They would benefit from anti-tippers with added safety and stabilization. Radha Thomason [employer] 01/25/2021 Evaluating Therapist Date I agree with and certify that the above recommendation is medically necessary. Referring Physician Date I agree with and certify that the above recommendation is medically necessary. Referring Physician Date
[2021-01-25] MEDS: polyethylene glycoL 3350 17 GM POWD.PACK PO (09:29)
[2021-01-25] MEDS: FUROSEMIDE 40 MG TABLET PO (09:29)
[2021-01-25] MEDS: DOCUSATE SODIUM LIQ 100 MG/10 ML UDC PO ×2 (09:29→21:11)
[2021-01-25] MEDS: FERROUS SULFATE 324 MG TABLET PO (09:29)
[2021-01-25] MEDS: FLUTICASONE PROPIONATE 0.05% NA SPR 16 GM BTL (*BKC) 1 SPRAY NASAL (09:29)
[2021-01-25] MEDS: ACETAMINOPHEN 500 MG TABLET 1000 MG PO ×2 (09:29→17:34)
[2021-01-25 12:06] LABS: Glucose Point of Care 119 (65-105)
[2021-01-25 14:00] VITALS: BP 142/60; PULSE 72; RESP 18; TEMP 36.4; O2SAT 96
--- NOTE | 2021-01-25 16:15 | WPDNEURORHBP ---
Subjective Date/time seen: 01/25/21 16:15 Interval history: The etiologic diagnosis is right foot osteomyelitis with new BKA The patient is a 65-year-old female past medical history of anemia history of pulmonary embolism, asthma, congestive heart failure, chronic kidney disease, diabetes mellitus, gastroparesis, GERD, hyperlipidemia, hypertension, peripheral neuropathy and osteomyelitis of the right foot who presented to [facility] on 01/12/2021 for right below-knee amputation by Dr. Hopson. Postoperatively the patient experienced acute postop pain, acute blood loss anemia requiring 1 unit packed red blood cells, hypo glycemia, hypertension, acute kidney injury in the setting of chronic kidney disease. Her pain is controlled with oral analgesics. Acute kidney injury is resolving and creatinine is reaching her baseline. Patient's anemia is stable. Hyperglycemia was in the setting of insulin administration is being monitored and managed accordingly with 8 units of Lantus and sliding scale insulin. Hypertension is being treated with home metoprolol and amlodipine. Patient will be discharged to rehab on Coumadin for DVT prophylaxis. Patient has been on Coumadin and alternates between 1 and 2 mg at home. INR goal is 2-3. Patient takes oxycodone at night to sleep. Neurontin has been of limited success. Will tulio Tylenol for bedtime Review of Systems Review of Systems: All systems reviewed & are unremarkable except as noted in HPI and below Neurologic: Reports Sensory deficit (Neuro) Functional Status Ambulation Ability Ability to Ambulate 10 Feet: Contact Guard Ambulation Assistive Devices: Walker, Wheeled Transfers Ability Ability to Transfer In/Out of Chair: Minimum Assistance X 1 Exam Narrative: Exam Narrative: patient is alert and oriented x3 patient is wearing glasses. Patient is well kept. Voice is clear. Heart rate and rhythm is regular. Lungs are clear to auscultation. Abdomen is soft nontender. Bilateral upper extremity strength are 4-5. Sensation in a stocking-glove distribution is noted that the sensory loss. Left lower extremity is missing toes. Left lower extremity strength is 4/5. Overall balance is good. Patient is independent with dressing. Const: General: cooperative Nutritional Appearance: average body habitus Orientation/consciousness: oriented to person and oriented to place Objective Data Vital Signs Vital Signs: Vital Signs - 24 hr 01/24/21 17:55 01/24/21 21:52 01/25/21 05:27 Temperature 36.5 C Pulse Rate 79 66 68 Respiratory Rate 14 Blood Pressure 149/68 H Pulse Oximetry 100 01/25/21 05:56 01/25/21 14:00 Temperature 35.9 C L 36.4 C Pulse Rate 65 72 Respiratory Rate 20 18 Blood Pressure 146/64 H 142/60 H Pulse Oximetry 100 96 Intake/Output Intake/Output: Intake & Output 01/22/21 01/23/21 01/24/21 01/25/21 23:59 23:59 23:59 23:59 Intake Total 840 720 720 480 Balance 840 720 720 480 Meds/Results Medications: Active Medications Generic Name Dose Route Start Last Admin Trade Name Freq PRN Reason Stop Dose Admin Acetaminophen 1,000 mg 01/22/21 17:00 01/25/21 09:29 Acetaminophen 500 Mg Tablet PO 1,000 mg BID KERRY Administration Acetaminophen 1,000 mg 01/25/21 21:00 Acetaminophen 500 Mg Tablet PO BEDTIME KERRY Hydrocodone Bitart/Acetaminophen 1 tab 01/17/21 18:21 01/25/21 00:00 Hydrocodone/Acetaminophen (*Crx) 5-325 Mg Tablet PO 1 tab Q4H PRN Administration Pain Albuterol 2 puff 01/17/21 18:21 Albuterol Sulfate (*Sp) Aerosol 1 Puff INHALATION Q4H PRN Shortness Of Breath Or Wheezing Amlodipine Besylate 5 mg 01/17/21 21:00 01/24/21 20:33 Amlodipine Besylate 5 Mg Tablet PO 5 mg HS KERRY Administration Atorvastatin Calcium 10 mg 01/17/21 21:00 01/24/21 20:34 Atorvastatin 10 Mg Tablet PO 10 mg HS KERRY Administration Budesonide/Formoterol Fumarate 1 puff 01/17/21 20:00
[2021-01-25 16:36] LABS: Glucose Point of Care 114 (65-105)
[2021-01-25 17:33] VITALS: PULSE 76
[2021-01-25] MEDS: WARFARIN (*PBKC) 2 MG TABLET PO (17:34)
[2021-01-25 20:00] VITALS: PULSE 66; RESP 16; O2SAT 98
[2021-01-25] MEDS: GABAPENTIN 100 MG CAPSULE 200 MG PO (21:11)
[2021-01-25] MEDS: amLODIPine BESYLATE 5 MG TABLET PO (21:11)
[2021-01-25] MEDS: ATORVASTATIN 10 MG TABLET PO (21:11)
[2021-01-25] MEDS: LORATADINE 10 MG TABLET PO (21:11)
[2021-01-25 21:23] LABS: Glucose Point of Care 134 (65-105)
[2021-01-25 22:00] VITALS: BP 169/71; PULSE 66; RESP 16; TEMP 36.6; O2SAT 98
[2021-01-26] VITALS (7 sets, daily range): BP systolic 132–147; BP diastolic 47–68; PULSE 61–73; RESP 16–18; TEMP 36.1–36.3; O2SAT 97–100
[2021-01-26] MEDS: HYDROcodone/acetaminophen (*CRX) 5-325 MG TABLET 1 TAB PO ×2 (00:16→23:15)
[2021-01-26] MEDS: METOPROLOL TARTRATE 25 MG TABLET PO ×2 (05:42→17:26)
[2021-01-26 05:57] LABS: INR 2.8; Prothrombin Time 29.8 Seconds (11.1-14.7)
[2021-01-26 06:07] LABS: Glucose Point of Care 91 (65-105)
--- NOTE | 2021-01-26 08:39 | WPDNEURORHBP ---
Subjective Date/time seen: 01/26/21 08:39 Interval history: The etiologic diagnosis is right foot osteomyelitis with new BKA The patient is a 65-year-old female past medical history of anemia history of pulmonary embolism, asthma, congestive heart failure, chronic kidney disease, diabetes mellitus, gastroparesis, GERD, hyperlipidemia, hypertension, peripheral neuropathy and osteomyelitis of the right foot who presented to [facility] on 01/12/2021 for right below-knee amputation by Dr. Hopson. Postoperatively the patient experienced acute postop pain, acute blood loss anemia requiring 1 unit packed red blood cells, hypo glycemia, hypertension, acute kidney injury in the setting of chronic kidney disease. Her pain is controlled with oral analgesics. Acute kidney injury is resolving and creatinine is reaching her baseline. Patient's anemia is stable. Hyperglycemia was in the setting of insulin administration is being monitored and managed accordingly with 8 units of Lantus and sliding scale insulin. Hypertension is being treated with home metoprolol and amlodipine. Patient will be discharged to rehab on Coumadin for DVT prophylaxis. Patient has been on Coumadin and alternates between 1 and 2 mg at home. INR goal is 2-3. Patient requires one [place] at night. Patient does not see any benefit from Neurontin. Will discontinue Neurontin. Patient feels prepared to go home next week. Review of Systems Review of Systems: All systems reviewed & are unremarkable except as noted in HPI and below Neurologic: Reports Sensory deficit (Neuro) Functional Status Ambulation Ability Ability to Ambulate 10 Feet: Contact Guard Ambulation Assistive Devices: Walker, Wheeled Transfers Ability Ability to Transfer In/Out of Chair: Minimum Assistance X 1 Exam Narrative: Exam Narrative: patient is alert and oriented x3 patient is wearing glasses. Patient is well kept. Voice is clear. Heart rate and rhythm is regular. Lungs are clear to auscultation. Abdomen is soft nontender. Bilateral upper extremity strength are 4-5. Sensation in a stocking-glove distribution is noted that the sensory loss. Left lower extremity is missing toes. Left lower extremity strength is 4/5. Overall balance is good. Patient is independent with dressing. Appetite is good. Objective Data Vital Signs Vital Signs: Vital Signs - 24 hr 01/25/21 14:00 01/25/21 17:33 01/25/21 20:00 Temperature 36.4 C Pulse Rate 72 76 66 Respiratory Rate 18 16 Blood Pressure 142/60 H Pulse Oximetry 96 98 01/25/21 22:00 01/26/21 05:42 01/26/21 06:00 Temperature 36.6 C 36.3 C L Pulse Rate 66 66 61 Respiratory Rate 16 16 Blood Pressure 169/71 H 132/47 L Pulse Oximetry 98 100 Intake/Output Intake/Output: Intake & Output 01/23/21 01/24/21 01/25/21 01/26/21 23:59 23:59 23:59 23:59 Intake Total 720 720 720 Balance 720 720 720 Meds/Results Medications: Active Medications Generic Name Dose Route Start Last Admin Trade Name Freq PRN Reason Stop Dose Admin Acetaminophen 1,000 mg 01/22/21 17:00 01/25/21 17:34 Acetaminophen 500 Mg Tablet PO 1,000 mg BID KERRY Administration Acetaminophen 1,000 mg 01/25/21 21:00 01/26/21 00:15 Acetaminophen 500 Mg Tablet PO Not Given BEDTIME KERRY Hydrocodone Bitart/Acetaminophen 1 tab 01/17/21 18:21 01/26/21 00:16 Hydrocodone/Acetaminophen (*Crx) 5-325 Mg Tablet PO 1 tab Q4H PRN Administration Pain Albuterol 2 puff 01/17/21 18:21 Albuterol Sulfate (*Sp) Aerosol 1 Puff INHALATION Q4H PRN Shortness Of Breath Or Wheezing Amlodipine Besylate 5 mg 01/17/21 21:00 01/25/21 21:11 Amlodipine Besylate 5 Mg Tablet PO 5 mg HS KERRY Administration Atorvastatin Calcium 10 mg 01/17/21 21:00 01/25/21 21:11 Atorvastatin 10 Mg Tablet PO 10 mg HS KERRY Administration Budesonide/Formoterol Fumarate 1 puff 01/17/21 20:00 01/25/21 21:16 Budesonide/Form 80-4.
[2021-01-26] MEDS: FERROUS SULFATE 324 MG TABLET PO (09:38)
[2021-01-26] MEDS: FUROSEMIDE 40 MG TABLET PO (09:38)
[2021-01-26] MEDS: DOCUSATE SODIUM LIQ 100 MG/10 ML UDC PO ×2 (09:39→20:27)
[2021-01-26] MEDS: polyethylene glycoL 3350 17 GM POWD.PACK PO (09:39)
[2021-01-26] MEDS: FLUTICASONE PROPIONATE 0.05% NA SPR 16 GM BTL (*BKC) 1 SPRAY NASAL (09:39)
[2021-01-26] MEDS: INSULIN GLARGINE (*BKC) 100 UNITS/ML 8 UNITS SUB-Q (09:42)
[2021-01-26] MEDS: ACETAMINOPHEN 500 MG TABLET 1000 MG PO ×3 (09:42→20:24)
[2021-01-26 12:08] LABS: Glucose Point of Care 100 (65-105)
[2021-01-26 17:02] LABS: Glucose Point of Care 122 (65-105)
[2021-01-26] MEDS: WARFARIN (*PBKC) 1 MG TABLET PO (17:26)
[2021-01-26] MEDS: amLODIPine BESYLATE 5 MG TABLET PO (20:25)
[2021-01-26] MEDS: ATORVASTATIN 10 MG TABLET PO (20:25)
[2021-01-26] MEDS: LORATADINE 10 MG TABLET PO (20:25)
[2021-01-26 21:18] LABS: Glucose Point of Care 150 (65-105)
[2021-01-27 05:34] VITALS: BP 149/71; PULSE 65; RESP 16; TEMP 36.2; O2SAT 99
[2021-01-27 05:57] LABS: INR 2.9; Prothrombin Time 30.5 Seconds (11.1-14.7)
[2021-01-27 06:00] VITALS: PULSE 62
[2021-01-27] MEDS: METOPROLOL TARTRATE 25 MG TABLET PO ×2 (06:00→18:13)
[2021-01-27 06:21] LABS: Glucose Point of Care 94 (65-105)
[2021-01-27] MEDS: ACETAMINOPHEN 500 MG TABLET 1000 MG PO ×2 (10:05→18:12)
[2021-01-27] MEDS: polyethylene glycoL 3350 17 GM POWD.PACK PO (10:06)
[2021-01-27] MEDS: FUROSEMIDE 40 MG TABLET PO (10:06)
[2021-01-27] MEDS: FLUTICASONE PROPIONATE 0.05% NA SPR 16 GM BTL (*BKC) 1 SPRAY NASAL (10:06)
[2021-01-27] MEDS: FERROUS SULFATE 324 MG TABLET PO (10:06)
[2021-01-27] MEDS: DOCUSATE SODIUM LIQ 100 MG/10 ML UDC PO (10:06)
[2021-01-27] MEDS: INSULIN GLARGINE (*BKC) 100 UNITS/ML 8 UNITS SUB-Q (10:07)
--- NOTE | 2021-01-27 10:37 | WPDNEURORHBP ---
Subjective Date/time seen: 01/27/21 10:37 Interval history: The etiologic diagnosis is right foot osteomyelitis with new BKA The patient is a 65-year-old female past medical history of anemia history of pulmonary embolism, asthma, congestive heart failure, chronic kidney disease, diabetes mellitus, gastroparesis, GERD, hyperlipidemia, hypertension, peripheral neuropathy and osteomyelitis of the right foot who presented to [facility] on 01/12/2021 for right below-knee amputation by Dr. Hopson. Postoperatively the patient experienced acute postop pain, acute blood loss anemia requiring 1 unit packed red blood cells, hypo glycemia, hypertension, acute kidney injury in the setting of chronic kidney disease. Her pain is controlled with oral analgesics. Acute kidney injury is resolving and creatinine is reaching her baseline. Patient's anemia is stable. Hyperglycemia was in the setting of insulin administration is being monitored and managed accordingly with 8 units of Lantus and sliding scale insulin. Hypertension is being treated with home metoprolol and amlodipine. Patient will be discharged to rehab on Coumadin for DVT prophylaxis. Patient has been on Coumadin and alternates between 1 and 2 mg at home. INR goal is 2-3. Patient requires one [place] at night. Patient does not see any benefit from Neurontin. Will discontinue Neurontin. Patient feels prepared to go home next week. Review of Systems Review of Systems: All systems reviewed & are unremarkable except as noted in HPI and below Neurologic: Reports Sensory deficit (Neuro) Functional Status Ambulation Ability Ability to Ambulate 10 Feet: Contact Guard Ambulation Assistive Devices: Walker, Wheeled Transfers Ability Ability to Transfer In/Out of Chair: Minimum Assistance X 1 Exam Narrative: Exam Narrative: patient is alert and oriented x3 patient is wearing glasses. Patient is well kept. Voice is clear. Heart rate and rhythm is regular. Lungs are clear to auscultation. Abdomen is soft nontender. Bilateral upper extremity strength are 4-5. Sensation in a stocking-glove distribution is noted that the sensory loss. Left lower extremity is missing toes. Left lower extremity strength is 4/5. Patient is independent with dressing. Appetite is good. Standing dynamic balance is cga/min assist during therapy. Patient lives alone. Patient did not demonstrate safety for stand pivot transfers. Patient lost her balance going from sitting to standing. Cast shoe is too large and causing inability to turn with leg. Objective Data Vital Signs Vital Signs: Vital Signs - 24 hr 01/26/21 14:00 01/26/21 17:26 01/26/21 20:00 Temperature 36.1 C L Pulse Rate 73 73 65 Respiratory Rate 18 16 Blood Pressure 138/68 Pulse Oximetry 98 97 01/26/21 22:00 01/27/21 05:34 01/27/21 06:00 Temperature 36.3 C L 36.2 C L Pulse Rate 65 65 62 Respiratory Rate 16 16 Blood Pressure 147/62 H 149/71 H Pulse Oximetry 97 99 Intake/Output Intake/Output: Intake & Output 01/24/21 01/25/21 01/26/21 01/27/21 23:59 23:59 23:59 23:59 Intake Total 720 720 720 360 Balance 720 720 720 360 Meds/Results Medications: Active Medications Generic Name Dose Route Start Last Admin Trade Name Freq PRN Reason Stop Dose Admin Acetaminophen 1,000 mg 01/22/21 17:00 01/27/21 10:05 Acetaminophen 500 Mg Tablet PO 1,000 mg BID KERRY Administration Acetaminophen 1,000 mg 01/25/21 21:00 01/26/21 20:24 Acetaminophen 500 Mg Tablet PO 1,000 mg BEDTIME KERRY Administration Hydrocodone Bitart/Acetaminophen 1 tab 01/17/21 18:21 01/26/21 23:15 Hydrocodone/Acetaminophen (*Crx) 5-325 Mg Tablet PO 1 tab Q4H PRN Administration Pain Albuterol 2 puff 01/17/21 18:21 Albuterol Sulfate (*Sp) Aerosol 1 Puff INHALATION Q4H PRN Shortness Of Breath Or Wheezing Amlodipine Besylate 5 mg 01/17/21 21:00 01/26/21 20:25 Amlodipine Besylate 5 Mg Tablet PO
[2021-01-27 11:41] LABS: Glucose Point of Care 111 (65-105)
[2021-01-27 14:00] VITALS: BP 161/70; PULSE 74; RESP 18; TEMP 36.2; O2SAT 100
[2021-01-27 16:45] LABS: Glucose Point of Care 133 (65-105)
[2021-01-27 18:13] VITALS: PULSE 74
[2021-01-27] MEDS: WARFARIN (*PBKC) 2 MG TABLET PO (18:13)
[2021-01-27] MEDS: LORATADINE 10 MG TABLET PO (20:22)
[2021-01-27] MEDS: amLODIPine BESYLATE 5 MG TABLET PO (20:22)
[2021-01-27] MEDS: ATORVASTATIN 10 MG TABLET PO (20:22)
[2021-01-27 21:35] LABS: Glucose Point of Care 148 (65-105)
[2021-01-27 21:50] VITALS: BP 157/65; PULSE 68; RESP 18; TEMP 36.3; O2SAT 100
[2021-01-27] MEDS: HYDROcodone/acetaminophen (*CRX) 5-325 MG TABLET 1 TAB PO (23:23)
[2021-01-28] VITALS (7 sets, daily range): BP systolic 149–169; BP diastolic 62–73; PULSE 68–72; RESP 16; TEMP 36.2–36.3; O2SAT 98–100
[2021-01-28 05:30] LABS: INR 2.3
[2021-01-28] MEDS: METOPROLOL TARTRATE 25 MG TABLET PO ×2 (06:08→17:43)
[2021-01-28 06:58] LABS: Glucose Point of Care 95 (65-105)
[2021-01-28] MEDS: FERROUS SULFATE 324 MG TABLET PO (09:52)
[2021-01-28] MEDS: FUROSEMIDE 40 MG TABLET PO (09:52)
[2021-01-28] MEDS: FLUTICASONE PROPIONATE 0.05% NA SPR 16 GM BTL (*BKC) 1 SPRAY NASAL (09:53)
[2021-01-28] MEDS: polyethylene glycoL 3350 17 GM POWD.PACK PO (09:54)
[2021-01-28] MEDS: INSULIN GLARGINE (*BKC) 100 UNITS/ML 8 UNITS SUB-Q (10:00)
--- NOTE | 2021-01-28 11:24 | WPDNEURORHBP ---
Subjective Date/time seen: 01/28/21 11:24 Interval history: The etiologic diagnosis is right foot osteomyelitis with new BKA The patient is a 65-year-old female past medical history of anemia history of pulmonary embolism, asthma, congestive heart failure, chronic kidney disease, diabetes mellitus, gastroparesis, GERD, hyperlipidemia, hypertension, peripheral neuropathy and osteomyelitis of the right foot who presented to [facility] on 01/12/2021 for right below-knee amputation by Dr. Hopson. Postoperatively the patient experienced acute postop pain, acute blood loss anemia requiring 1 unit packed red blood cells, hypo glycemia, hypertension, acute kidney injury in the setting of chronic kidney disease. Her pain is controlled with oral analgesics. Acute kidney injury is resolving and creatinine is reaching her baseline. Patient's anemia is stable. Hyperglycemia was in the setting of insulin administration is being monitored and managed accordingly with 8 units of Lantus and sliding scale insulin. Hypertension is being treated with home metoprolol and amlodipine. Patient will be discharged to rehab on Coumadin for DVT prophylaxis. Patient has been on Coumadin and alternates between 1 and 2 mg at home. INR goal is 2-3. Patient observed in therapy. Patient performed much better and stand pivot transfers were independent. Plans to go home tomorrow. Anxiety biggest barrier. Review of Systems Review of Systems: All systems reviewed & are unremarkable except as noted in HPI and below Functional Status Ambulation Ability Ability to Ambulate 10 Feet: Contact Guard Ambulation Assistive Devices: Walker, Wheeled Transfers Ability Ability to Transfer In/Out of Chair: Minimum Assistance X 1 Exam Narrative: Exam Narrative: Patient is alert and oriented x3 patient is wearing glasses. Patient is well kept. Voice is clear. Heart rate and rhythm is regular. Lungs are clear to auscultation. Abdomen is soft nontender. Bilateral upper extremity strength are 4-5. Sensation in a stocking-glove distribution is noted that the sensory loss. Left lower extremity is missing toes. Left lower extremity strength is 4/5. Patient is independent with dressing. Appetite is good. Patient did very well today with stand pivot transfers. New cast shoe allows for safe transfers. Patient is instructed that she cannot perform gait unless her caregiver is present. Stand pivot transfers are independent utilizing grab bars. Patient requires contact guard with stand pivot transfers using a walker. Patient demonstrates good grasp of safety issues. Objective Data Vital Signs Vital Signs: Vital Signs - 24 hr 01/27/21 14:00 01/27/21 18:13 01/27/21 21:50 Temperature 36.2 C L 36.3 C L Pulse Rate 74 74 68 Respiratory Rate 18 18 Blood Pressure 161/70 H 157/65 H Pulse Oximetry 100 100 01/28/21 06:00 01/28/21 06:08 Temperature 36.3 C L Pulse Rate 69 68 Respiratory Rate 16 Blood Pressure 149/73 H Pulse Oximetry 100 Intake/Output Intake/Output: Intake & Output 01/25/21 01/26/21 01/27/21 01/28/21 23:59 23:59 23:59 23:59 Intake Total 720 720 840 240 Balance 720 720 840 240 Meds/Results Medications: Active Medications Generic Name Dose Route Start Last Admin Trade Name Freq PRN Reason Stop Dose Admin Acetaminophen 1,000 mg 01/22/21 17:00 01/28/21 09:57 Acetaminophen 500 Mg Tablet PO Not Given BID KERRY Acetaminophen 1,000 mg 01/25/21 21:00 01/27/21 20:29 Acetaminophen 500 Mg Tablet PO Not Given BEDTIME KERRY Hydrocodone Bitart/Acetaminophen 1 tab 01/17/21 18:21 01/27/21 23:23 Hydrocodone/Acetaminophen (*Crx) 5-325 Mg Tablet PO 1 tab Q4H PRN Administration Pain Albuterol 2 puff 01/17/21 18:21 Albuterol Sulfate (*Sp) Aerosol 1 Puff INHALATION Q4H PRN Shortness Of Breath Or Wheezing Amlodipine Besylate 5 mg 01/17/21 21:00 01/27/21 20:22 Amlodipine Besylate 5 Mg Ta
[2021-01-28 11:59] LABS: Glucose Point of Care 126 (65-105)
[2021-01-28 17:14] LABS: Glucose Point of Care 140 (65-105)
[2021-01-28] MEDS: ACETAMINOPHEN 500 MG TABLET 1000 MG PO (17:42)
[2021-01-28] MEDS: WARFARIN (*PBKC) 2 MG TABLET PO (17:44)
[2021-01-28] MEDS: ATORVASTATIN 10 MG TABLET PO (20:32)
[2021-01-28] MEDS: LORATADINE 10 MG TABLET PO (20:32)
[2021-01-28] MEDS: amLODIPine BESYLATE 5 MG TABLET PO (20:32)
[2021-01-28 21:33] LABS: Glucose Point of Care 149 (65-105)
[2021-01-28] MEDS: HYDROcodone/acetaminophen (*CRX) 5-325 MG TABLET 1 TAB PO (22:19)
[2021-01-29 05:31] VITALS: PULSE 69
[2021-01-29] MEDS: METOPROLOL TARTRATE 25 MG TABLET PO (05:31)
[2021-01-29 05:32] LABS: INR 2.2; Prothrombin Time 25.2 Seconds (11.1-14.7)
[2021-01-29 06:00] VITALS: BP 162/72; PULSE 66; RESP 18; TEMP 36.1; O2SAT 100
[2021-01-29 06:43] LABS: Glucose Point of Care 104 (65-105)
[2021-01-29] MEDS: INSULIN GLARGINE (*BKC) 100 UNITS/ML 8 UNITS SUB-Q (07:45)
[2021-01-29] MEDS: FERROUS SULFATE 324 MG TABLET PO (07:51)
[2021-01-29] MEDS: DOCUSATE SODIUM LIQ 100 MG/10 ML UDC PO (07:51)
[2021-01-29] MEDS: FUROSEMIDE 40 MG TABLET PO (07:52)
[2021-01-29] MEDS: polyethylene glycoL 3350 17 GM POWD.PACK PO (07:52)
[2021-01-29] MEDS: FLUTICASONE PROPIONATE 0.05% NA SPR 16 GM BTL (*BKC) 1 SPRAY NASAL (09:26)
[2021-01-29 11:57] LABS: Glucose Point of Care 121 (65-105)
--- NOTE | 2021-01-29 12:50 | PM.DS ---
DS: Admitting Diagnosis Admitting Diagnosis Admitting Diagnosis: Right below-knee amputation DS: Discharge Diagnosis Discharge Diagnosis (1) Osteomyelitis of ankle and foot: Code(s): M86.9 - Osteomyelitis, unspecified Status: Acute (2) Peripheral neuropathy: Code(s): G62.9 - Polyneuropathy, unspecified Status: Acute Assessment and Plan: No benefit from neurontin (3) Hypertension: Code(s): I10 - Essential (primary) hypertension Status: Acute Assessment and Plan: Norvasc 5 mg daily (4) Hyperlipidemia: Code(s): E78.5 - Hyperlipidemia, unspecified Status: Acute Assessment and Plan: Lipitor 10 mg at bedtime (5) History of gluten sensitivity: Status: Acute (6) Gastroparesis: Code(s): K31.84 - Gastroparesis Status: Acute (7) Gastroesophageal reflux disease: Code(s): K21.9 - Gastro-esophageal reflux disease without esophagitis Status: Acute (8) Diabetes mellitus: Code(s): E11.9 - Type 2 diabetes mellitus without complications Status: Acute Assessment and Plan: insulin glargine 8 mg q.a.m. and sliding-scale insulin (9) Chronic kidney disease: Code(s): N18.9 - Chronic kidney disease, unspecified Status: Acute (10) CHF (congestive heart failure): Code(s): I50.9 - Heart failure, unspecified Status: Acute (11) Asthma: Code(s): J45.909 - Unspecified asthma, uncomplicated Status: Acute (12) Anemia: Code(s): D64.9 - Anemia, unspecified Status: Acute Assessment and Plan: iron supplement (13) Amputation of right lower extremity below knee: Code(s): S88.111A - Complete traumatic amputation at level between knee and ankle, right lower leg, initial encounter Status: Acute DS: Summary Hospital Course Reason for hospitalization: ADMISSION FUNCTION: Eating was independent Oral Care was independent Toileting Hygiene was partial to mod Shower/Bathing was partial to moderate assist Upper Body Dressing was supervision are touching assistance Lower Body Dressing was partial to moderate assistance Donning/[place] Footwear was partial to moderate assistance Rolling Left and Right was supervision or touching assistance Sit to Lying was supervision or touching a Lying to Sitting was ssistance supervision or touching assistance Sit to Stand was partial to moderate assistance Bed to Chair Transfers were partial to moderate as Toilet Transfers were sistance partial to moderate assistance Walking was unable Wheelchair Mobility was not tested Stairs were not tested GOALS: Eating INDEPENDENT Oral Care [INDEPENDENT] Toileting Hygiene [INDEPENDENT] Shower/Bathing [INDEPENDENT] Upper Body Dressing [INDEPENDENT] Lower Body Dressing [INDEPENDENT] Donning/[place] Footwear [INDEPENDENT] Rolling Left and Right [INDEPENDENT] Sit to Lying [INDEPENDENT] Lying to Sitting [INDEPENDENT] Sit to Stand [INDEPENDENT] Bed to Chair Transfers [INDEPENDENT] Toilet Transfers [INDEPENDENT] Car Transfers [INDEPENDENT] Walking 10' [INDEPENDENT] Walking 50' with Two Turns not applicable Walking 150' not Applicable Curb or Step not applicable 4 Steps not applicable 12 Steps not applicable Picking Up Object [INDEPENDENT] [Wheelchair Mobility 50'] [INDEPENDENT] [Wheelchair Mobility 150'] [INDEPENDENT] DISCHARGE PERFORMANCE: Eating [INDEPENDENT] Oral Care [INDEPENDENT] Toileting Hygiene [INDEPENDENT] Shower/Bathing [INDEPENDENT] Upper Body Dressing [INDEPENDENT] Lower Body Dressing [INDEPENDENT] Donning/[place] Footwear [INDEPENDENT] Rolling Left and Right [INDEPENDENT] Sit to Lying [INDEPENDENT] Lying to Sitting [INDEPENDENT] Sit to Stand [INDEPENDENT] Bed to Chair Transfers [INDEPENDENT] Toilet Transfers [INDEPENDENT] Car Transfers [INDEPENDENT] Walking 10' supervised Walking 50' with Two Turns not applicable Walking 150' not applicable
== END 2021-01-29 13:00 | disposition home health service (06) | DRG 560 ==
PROVIDERS: Psychiatry & Neurology Neurology; Admitting Provider Physical Medicine & Rehabilitation; PCP Family Medicine; Visit Provider Physical Medicine & Rehabilitation
DX: Z47.81 Encounter for orthopedic aftercare following surgical amputation (principal); I13.0 Hypertensive heart and chronic kidney disease with heart failure and stage 1 through stage 4 chronic kidney disease, or unspecified chronic kidney disease; N17.9 Acute kidney failure, unspecified; I50.30 Unspecified diastolic (congestive) heart failure; Z89.511 Acquired absence of right leg below knee; D63.1 Anemia in chronic kidney disease; E11.22 Type 2 diabetes mellitus with diabetic chronic kidney disease; E11.42 Type 2 diabetes mellitus with diabetic polyneuropathy; E78.5 Hyperlipidemia, unspecified; J45.909 Unspecified asthma, uncomplicated; K31.84 Gastroparesis; K21.9 Gastro-esophageal reflux disease without esophagitis; N18.30 Chronic kidney disease, stage 3 unspecified; Z86.711 Personal history of pulmonary embolism; Z79.01 Long term (current) use of anticoagulants; Z79.4 Long term (current) use of insulin; Z89.422 Acquired absence of other left toe(s)
CPT/HCPCS: 36415; 80053; 82948; 83036; 84100; 85025; 85610; 94640; 97110; 97116; 97161; 97165; 97530; 97535; 97542; A9270; J1644; J1815